=== PATIENT | male | born 1995 | race Caucasian/White ===

== ENCOUNTER 2023-07-06 11:10 | Emergency (ER) | payer MEDICAID ==
[~2023-07-06] VITALS: Ht 175.3 cm; Wt 88.5 kg
[2023-07-06 11:19] VITALS: BP 148/93; PULSE 81; RESP 16; TEMP 98.3; O2SAT 97
[2023-07-06] MEDS: ACETAMINOPHEN EXTRA STRENGTH 500 MG TAB PO ONE (12:56)
[2023-07-06] MEDS ORDERED: ACET-10509 PO (13:35)
[2023-07-06] MEDS ORDERED: BENZ-300 PO (13:35)
[2023-07-06] MEDS ORDERED: AZIT250T4 PO (13:35)
[2023-07-06 13:36] LABS: FLU A ANTIGEN negative (NEGATIVE)
[2023-07-06 13:38] LABS: FLU B ANTIGEN POSITIVE (NEGATIVE)
== END 2023-07-06 13:45 | disposition home or self-care (01) ==
LOC: MED 11:10
DX: J02.8 Acute pharyngitis due to other specified organisms (principal); B96.89 Other specified bacterial agents as the cause of diseases classified elsewhere; J11.1 Influenza due to unidentified influenza virus with other respiratory manifestations; Z20.822 Contact with and (suspected) exposure to COVID-19; Z79.899 Other long term (current) drug therapy; Z88.0 Allergy status to penicillin; Z88.6 Allergy status to analgesic agent
CPT/HCPCS: 87081; 99283

== ENCOUNTER 2023-10-11 19:06 | Emergency (ER) | payer MEDICAID, OTHER ==
[~2023-10-11] VITALS: Ht 177.8 cm; Wt 86.2 kg
[~2023-10-11 19:06] MED LIST: ACET-10509 PO; AZIT250T4 PO; BENZ-300 PO
[2023-10-11 19:25] VITALS: BP 140/83; PULSE 114; RESP 18; TEMP 98; O2SAT 98
[2023-10-11] MEDS: MORPHINE SULFATE 4 MG/ML SYR IM ONE (20:50)
[2023-10-11] MEDS ORDERED: ACET-8905 PO (21:00)
[2023-10-11 21:13] VITALS: BP 140/93; PULSE 80; RESP 20; TEMP 98.2; O2SAT 99
== END 2023-10-11 21:13 | disposition home or self-care (01) ==
LOC: MED 19:06
DX: M25.511 Pain in right shoulder (principal); Z79.1 Long term (current) use of non-steroidal anti-inflammatories (NSAID); Z79.2 Long term (current) use of antibiotics; Z79.899 Other long term (current) drug therapy; Z88.0 Allergy status to penicillin; Z88.6 Allergy status to analgesic agent
CPT/HCPCS: 73030; 96372; 99283; J2270; Q0092